=== PATIENT | female | born 1980 | race Caucasian/White ===

== ENCOUNTER → 2024-05-13 | Outpatient (CLI) | payer MEDICAID ==
[2024-05-13 13:55] VITALS: BP 131/69; PULSE 86; RESP 16
--- NOTE | 2024-05-13 14:24 | DVHCARD ---
Cardiology Stress Test [facility] Treadmill Stress Test [facility] Referring MD: Alfreda Miller MD Protocol: Arnaldo (without cardiolite) Reason for referral: Other (Palpitations, non-cardiac chest pain) Target heart Rate:@85%: 149 Percent MPHR: 176 METS: 10.10 Resting Heart rate: 86 Resting Blood Pressure: 131/69 Exercise Heart Rate: 146/101 Exercise Blood Pressure: 150 Reason for Termination of Test: Completion of Protocol Baseline EKG: NSR Stress EKG: Sinus tachycardia w/o discernible ST changes Functional Capacity: Good Normal Heart Rate Response: Adequate Blood Pressure Response: Hypertensive Clinical response: Non-ischemic Arrhythmia?: No Cardiolite Injected?: No ST-T Changes: Non/Minimal Probability of Inducible Ische: Low Comments: Uneventful Arnaldo protocol. Optimal functional capacity. Date of Service: May 13, 2024 Billing Provider: ALFREDA MILLER MD Cardiology Common Codes: PROCEDURE ONLY Treadmill w/o Cardiolite: [id number], INTERP, RPT [facility] May 13, 2024 14:24
== END | disposition home or self-care (01) ==
LOC: XYW 13:44
PROVIDERS: ATTEND Student in an Organized Health Care Education/Training Program
DX: R07.9 Chest pain, unspecified (principal)
CPT/HCPCS: 93017

== ENCOUNTER 2024-10-01 21:02 | Emergency (ER) | payer MEDICAID ==
[~2024-10-01] VITALS: Ht 157.5 cm; Wt 68.1 kg
[2024-10-01 23:11] VITALS: BP 134/80; PULSE 107; RESP 20; TEMP 98.7; O2SAT 100
[2024-10-01] MEDS ORDERED: FLUC150T38 PO (23:15)
[2024-10-01] MEDS ORDERED: CLIN1CAP70 PO (23:15)
--- NOTE | 2024-10-01 23:15 | ED.PDOC ---
Eye-HPI HPI Comments 44-YEAR-OLD FEMALE PRESENTS TO ER WITH COMPLAINTS OF WOUND CHECK. PATIENT REPORTS SHE HAS BEEN EXPERIENCING SWELLING/REDNESS AND MILD NUMBNESS TO TIP OF NOSE X 1 DAY AND PRESENTS TO ER FOR WOUND CHECK. DENIES ANY TRAUMA/INJURY AND DENIES ANY CURRENT PAIN. PATIENT PRESENTS TO ER AMBULATORY ON ARRIVAL, WITH STEADY GAIT, IN NO DISTRESS. DENIES FEVER, BODY ACHES, CHILLS, RECENT ILLNESS, NASAL CONGESTION/RUNNY NOSE OR ANY FURTHER SYMPTOMS/COMPLAINTS Chief Complaint: Face pain Time Seen by MD: 21:10 Primary Care Provider: UNKNOWN Reviewed Notes: Nurses Notes, Medications, Allergies Allergies: Coded Allergies: Latex (Verified Allergy, Unknown, 10/01/24) Home Meds Active Scripts Fluconazole (Diflucan) 150 Mg Tab, 1 TAB PO ONCE, #1 TAB 0 Refills Prov:TIAGO MATHEW 10/01/24 Clindamycin Hcl (Clindamycin Hcl) 300 Mg Cap, 1 CAP PO TID for 7 Days, #21 CAP 0 Refills Prov:TIAGO MATHEW 10/01/24 Information Source: Patient Mode of Arrival: Ambulatory Past Medical History PAST MEDICAL HISTORY: Denies Surgical History (Other): BILATERAL BREAST RECONSTRUCTIVE SURGERY Family History Family History: Unknown Social History Smoker: Non-Smoker Alcohol: Denies ETOH Use Drugs: Denies Drug Use Lives In: Home Constitutional: denies: chills, diaphoresis, fatigue, fever, malaise, sweats, weakness, others EENTM: reports: others ( STATED IN HPI) Respiratory: denies: cough, hemoptysis, orthopnea, SOB at rest, shortness of breath, SOB with excertion, stridor, wheezing, others Cardiovascular: denies: chest pain, dizzy spells, diaphoresis, Dyspnea on exertion, edema, irregular heart beat, left arm pain, lightheadedness, palpitations, PND, syncope, others Gastrointestinal: denies: abdomen distended, abdominal pain, blood streaked bowels, constipated, diarrhea, dysphagia, difficulty swallowing, hematemesis, melena, nausea, poor appetite, poor fluid intake, rectal bleeding, rectal pain, vomiting, others Genitourinary: denies: abnormal vagina bleeding, burning, dyspareunia, dysuria, flank pain, frequency, hematuria, incontinence, pain, , vagina discharge, urgency, others Neurological: denies: dizziness, fainting, headache, left sided numbness, left sided weakness, numbness, paresthesia, pre-existing deficit, right sided numbness, right sided weakness, seizure, speech problems, tingling, tremors, weakness, others Musculoskeletal: denies: back pain, gout, joint pain, joint swelling, muscle pain, muscle stiffness, neck pain, others Integumetry: reports: others ( STATED IN HPI) Allergic/Immunocompromised: denies: Difficulty Healing, Frequent Infections, Hives, Itching, others Hematologic/Lymphatic: denies: anemia, blood clots, easy bleeding, easy bruising, swollen glands, others Endocrine: denies: excessive hunger, excessive sweating, excessive thirst, excessive urination, flushing, intolerance to cold, intolerance to heat, unexplained weight gain, unexplained weight loss, others Psychiatric: denies: anxiety, bipolar disorder, depression, hopeless, panic disorder, schizophrenia, sleepless, suicidal, others Physical Exam General Appearance: No Apparent Distress HEENT: PERRL/EOMI, Pharynx Normal, TMs Normal, Other (MINIMAL ERYTHEMA/MILD SWELLING AND MINIMAL PUSTULES <.5 CM IN SIZE NOTED TO NASAL TIP. NO DRAINAGE/OP EN WOUNDS NOTED. REMAINDER NOSE EXAM-UNREMARKABLE) Neck: Full Range of Motion, Non-Tender, Normal Respiratory: Chest Non-Tender, Lungs Clear, No Accessory Muscle Use, No Respiratory Distress, Normal Breath Sounds Cardiovascular: No Murmur, No Gallop, Regular Rate/Rhythm Breast Exam: Deferred Gastrointestinal: NOT DONE Genitalia: Deferred Pelvic: Deferred Rectal: Deferred Extremities: Normal capillary refill, Normal range of motion Neurologic: Alert, product safety coordinator II-XII nml as Tested, No Motor Deficits, Normal Affect, Normal Mood, No Sensory Deficits Cerebellar Function: Normal Reflexes: Normal Skin: Dry, Warm Lymphatic: No Adenopathy Was a procedure done? Was a procedure done?: No Sedation Sedation?: No EENT DIFF Eye: N/A Nose: Anterior Nasal Bleed, Posterior Nasal Bleed, Other (ABSCESS) X-Ray, Labs, Meds, VS Vital Signs Date Time Temp Pulse Resp B/P (MAP) Pulse Ox O2 Delivery O2 Flow Rate FiO2 10/01/24 23:11 Room Air* 0 21 10/01/24 23:11 98.7 107 20 134/80 (98) 100 98.7 10/01/24 22:15 98.7 107 20 134/80 (98) 100 98.7 PATIENT IN NO DISTRESS DURING ER VISIT/PRIOR TO DISCHARGE PATIENT REPORTED THAT SHE OFTEN GETS YEAST INFECTIONS WITH "SEVERAL ANTIBIOTICS" AND IS REQUESTING A MEDICATION TO PREVENT THIS ADVISED TO FOLLOW UP WITH PCP IN 1-2 DAYS PATIENT VERBALIZED UNDERSTANDING AND AGREEABLE WITH CURRENT PLAN OF CARE ADVISED TO RETURN TO ER IMMEDIATELY IF SYMPTOMS WORSEN Time of 1ST Reevaluation: 22:54 Reevaluation 1ST: N/A Patient Education/Counseling: Diagnosis, Treatment, Prognosis, Need For Follow Up Family Education/Counseling: No Family Present Departure 1 Departure Time of Disposition: 23:12 Impression: Primary Impression: Cellulitis of nose Disposition: HOME / SELF CARE / HOMELESS Condition: Stable e-Prescriptions Fluconazole (Diflucan) 150 Mg Tab 1 TAB PO ONCE, #1 TAB 0 Refills Prov: TIAGO MATHEW 10/01/24 Clindamycin Hcl (Clindamycin Hcl) 300 Mg Cap 1 CAP PO TID for 7 Days, #21 CAP 0 Refills Prov: TIAGO MATHEW 10/01/24 Discharged With: Self Critical Care Note Critical Care Time?: No Stability Stability form required: No Heart Score Heart Score: Heart Score Response (Comments) Value History N/A 0 EKG N/A 0 Age N/A 0 Risk Factors N/A 0 Troponin N/A 0 Total 0 TIAGO MATHEW Oct 01, 2024 23:15
== END 2024-10-01 23:21 | disposition home or self-care (01) ==
LOC: ER 21:02
DX: J34.0 Abscess, furuncle and carbuncle of nose (principal); Z91.040 Latex allergy status